=== PATIENT | female | born 1965 | race Caucasian/White ===

== ENCOUNTER → 2019-01-10 | Outpatient (CLI) | payer BC ==
--- NOTE | 2019-01-10 13:35 | Diagnostic Imaging Report ---
Exam: Pelvic ultrasound. History: Perimenopausal bleeding Comparison: None Findings: Transabdominal and endovaginal sonographic evaluation of the pelvis. The uterus is anteverted in position, measuring 9.0 x 3.9 x 5.3cm. A hypoechoic 1.7 x 1.3 x 1.5 cm intramural structure to represent a fibroid. Endometrial stripe thickness is 5 mm. The right ovary is not well visualized. The left ovary measures 1.8 x 1.7 x 1.6 cm and contains a 1.0 x 0.9 x 1.1 cm anechoic cystic structure, likely a physiologic follicle. No free fluid. Impression: Hypoechoic 1.7 x 1.3 x 1.5 cm intramural structure likely represents a fibroid. Signed by: Maryse Villegas MD on 01/10/2019 1:32 PM
== END ==
LOC: US 10:05
PROVIDERS: ATTEND Obstetrics & Gynecology
DX: N83.202 Unspecified ovarian cyst, left side (principal); N92.4 Excessive bleeding in the premenopausal period
CPT/HCPCS: 76830; 76856

== ENCOUNTER → 2020-09-10 | Day surgery (SDC) | payer BC ==
[~2020-09-10] MED LIST: CENTRUM ADULTS1 EACH PO; FENTANYL CITRATE/PF 100MCG/2 ML INJ ONE; HYDROCHLOROTHIA25 MG PO; LOSARTAN POTASS25 MG PO; LOSARTAN-HCTZ1 EACH PO; MIDAZOLAM HCL 2 MG/2 ML VIAL ONE; PROPOFOL IV EMULSION 10 MG/ML 20 ML VIAL ONE; TYLENOL EXTRA500 MG PO; VITAMIN D3 PO
[2020-09-10 15:41] VITALS: BP 123/76
== END | disposition home or self-care (01) ==
LOC: OR 10:04
PROVIDERS: ATTEND Internal Medicine Gastroenterology
DX: Z12.11 Encounter for screening for malignant neoplasm of colon (principal); D12.0 Benign neoplasm of cecum; D12.2 Benign neoplasm of ascending colon; K64.8 Other hemorrhoids; I10 Essential (primary) hypertension; F17.210 Nicotine dependence, cigarettes, uncomplicated; Z01.810 Encounter for preprocedural cardiovascular examination; Z01.812 Encounter for preprocedural laboratory examination; Z20.822 Contact with and (suspected) exposure to COVID-19; Z68.32 Body mass index [BMI] 32.0-32.9, adult
CPT/HCPCS: 45380; 45385; 81025; 93005; J2250; J2704; J3010; U0002; 45378